=== PATIENT | female | born 1970 | race Caucasian/White ===

== ENCOUNTER → 2018-01-18 | Day surgery (SDC) | payer MEDICAID ==
[~2018-01-18] VITALS: Ht 162.6 cm; Wt 70.3 kg
[~2018-01-18] MED LIST: BACL-141 PO; BUSP30TA2 PO; FERR-71 PO; SERT50TA PO
[2018-01-18 12:44] LABS: GLUCOSE CSF 128 mg/dL (41-75)
[2018-01-21 17:11] LABS: MYELIN BASIC PROTEIN CSF 2.2 ng/mL (0.0-1.2)
== END | disposition home or self-care (01) ==
LOC: RAD 08:47
PROVIDERS: ATTEND Psychiatry & Neurology Neurology
DX: G44.89 Other headache syndrome (principal); Z79.899 Other long term (current) drug therapy
CPT/HCPCS: 62270; 77003; 82040; 82042; 82784; 82945; 83873; 83916; 84157; 89050